=== PATIENT | male | born 1990 | race Caucasian/White ===

== ENCOUNTER 2016-08-12 22:36 | Emergency (ER) | payer BC ==
[2016-08-12 22:47] VITALS: BP 126/89; PULSE 75; RESP 18; TEMP 98.9
[2016-08-12] MEDS ORDERED: MUPIROCIN 2% OINT 22 GM TUBE TOPICAL STA (22:55)
--- NOTE | 2016-08-12 23:00 | ED ---
Abdominal Pain HPI - General Chief Complaint: Abdominal Pain Stated Complaint: bleeding navel Time Seen by Provider: 08/12/16 22:48 Source: patient, RN notes reviewed, old records reviewed Mode of arrival: ambulatory Limitations: no limitations - History of Present Illness Initial Comments: Presenting her male presents emergency Department with bleeding from his umbilicus. Patient reports that is going on for the past 5 hours. Patient reports that when he is taking shower he felt that he rubbed too hard over his umbilicus and caused a small tear and bleeding. Patient reports is continually for the past 5 hours slowly. Patient states that her head this happen before. Denies any bleeding disorders. Denies any recent trauma or previous incision sites over the area.Patient denies any recent fever, chills, shortness of breath , chest pain, back pain, abdominal pain, nausea vomiting, numbness or tingling, dysuria or hematuria, constipation or diarrhea, headaches or visual changes, or any other current symptoms - Related Data Home Medications Medication Instructions Recorded Confirmed No Known Home Medications [No 08/12/16 08/12/16 Known Home Medications] Allergies Allergy/AdvReac Type Severity Reaction Status Date / Time No Known Allergies Allergy Verified 01/24/15 10:55 Review of Systems ROS Statement: Those systems with pertinent positive or pertinent negative responses have been documented in the HPI. ROS Other: All systems not noted in ROS Statement are negative. Past Medical History Past Medical History: GERD/Reflux History of Any Multi-Drug Resistant Organisms: None Reported Past Surgical History: Cholecystectomy Additional Past Surgical History / Comment(s): EGD, WISDOM TEETH EXTRACTION Past Anesthesia/Blood Transfusion Reactions: No Reported Reaction Past Psychological History: No Psychological Hx Reported Smoking Status: Former smoker Additional Past Alcohol Use History / Comment(s): QUIT 2014 , STARTED Past Drug Use History: None Reported - Past Family History Mother Family Medical History: Cancer General Exam - General Exam Comments Initial Comments: Well-appearing 26-year-old male. No acute distress. Limitations: no limitations General appearance: alert, in no apparent distress Head exam: Present: atraumatic, normocephalic, normal inspection Eye exam: Present: normal appearance, PERRL, EOMI. Absent: scleral icterus, conjunctival injection, periorbital swelling ENT exam: Present: normal exam, mucous membranes moist Neck exam: Present: normal inspection. Absent: tenderness, meningismus, lymphadenopathy Respiratory exam: Present: normal lung sounds bilaterally. Absent: respiratory distress, wheezes, rales, rhonchi, stridor Cardiovascular Exam: Present: regular rate, normal rhythm, normal heart sounds. Absent: systolic murmur, diastolic murmur, rubs, gallop, clicks GI/Abdominal exam: Present: soft, normal bowel sounds, other (Evidence of small amount of blood around the umbilicus.). Absent: distended, tenderness, guarding , rebound, rigid Extremities exam: Present: normal inspection, full ROM, normal capillary refill. Absent: tenderness, pedal edema, joint swelling, calf tenderness Back exam: Present: normal inspection Neurological exam: Present: alert, oriented X3, CN II-XII intact Psychiatric exam: Present: normal affect, normal mood Skin exam: Present: warm, dry, intact, normal color. Absent: rash Course Vital Signs 08/12/16 22:43 Temperature 98.9 F Pulse Rate 75 Respiratory 18 Rate Blood Pressure 126/89 O2 Sat by Pulse 98 Oximetry Medical Decision Making - Medical Decision Making Presenting her male presents emergency Department with bleeding from his umbilicus. Patient reports that is going on for the past 5 hours. Patient reports that when he is taking shower he felt that he rubbed too hard over his umbilicus and caused a small tear and bleeding. Patient reports is continually for the past 5 hours slowly. Patient states that her head this happen before. Denies any bleeding disorders. Amylase was inspected. There is evidence of a area of erythema and skin irritation deep within the umbilicus. It was cleaned out. Bactroban was ordered and placed in the area. Discussed keeping the area clean and dry. Patient also was given some gauze to place him as well. Patient reports the bleeding is slowed down immensely. Patient will be discharged home and discussed following up with primary care provider. Patient was treated plan will comply. Disposition Clinical Impression: Umbilical bleeding Disposition: HOME SELF-CARE Condition: Good Instructions: Wound Infection (ED) Additional Instructions: Keep the area clean and dry. Apply antibiotic ointment 3 times a day. Return to the emergency department if any alarming signs or symptoms occur. Follow-up with a primary care doctor within the next 2-3 days. Referrals: Cecy Maurice DO [Primary Care Provider] - 1-2 days Time of Disposition: 22:57
== END 2016-08-12 23:12 | disposition home or self-care (01) ==
LOC: EC 22:36
DX: R58 Hemorrhage, not elsewhere classified (principal); Z90.49 Acquired absence of other specified parts of digestive tract; Z87.891 Personal history of nicotine dependence
CPT/HCPCS: 99283

== ENCOUNTER 2018-03-25 18:26 | Emergency (ER) | payer BC ==
[2018-03-25 19:12] VITALS: RESP 16
[2018-03-25 19:28] LABS: Basophils # (A) 0.1 k/uL (0-0.2); Basophils % (A) 1 %; Eosinophils # (A) 1.2 k/uL (0-0.7); Eosinophils % (A) 13 %; HGB 15.6 gm/dL (13.0-17.5); Lymphocytes % (A) 32 %; MCH 30.6 pg (25.0-35.0); MCHC 33.9 g/dL (31.0-37.0); MCV 90.1 fL (80.0-100.0); Mean Platelet Volume 6.4; Monocytes # (A) 0.6 k/uL (0-1.0); Monocytes % (A) 6 %; Neutrophils # (A) 4.3 k/uL (1.3-7.7); Neutrophils % (A) 46 %; Platelet Count 255 k/uL (150-450); RBC 5.11 m/uL (4.30-5.90); RDW 12.6 % (11.5-15.5); WBC 9.5 k/uL (3.8-10.6)
[2018-03-25 19:40] LABS: ALT 44 U/L (21-72); AST 32 U/L (17-59); Albumin 4.1 g/dL (3.5-5.0); Alkaline Phosphatase 40 U/L (38-126); Amylase 55 U/L (30-110); Anion Gap 10 mmol/L; Blood Urea Nitrogen 12 mg/dL (9-20); Calcium 9.1 mg/dL (8.4-10.2); Carbon Dioxide 24 mmol/L (22-30); Chloride 108 mmol/L (98-107); Glucose 86 mg/dL (74-99); Lipase 38 U/L (23-300); Sodium 142 mmol/L (137-145); Total Bilirubin 0.9 mg/dL (0.2-1.3); Total Protein 6.7 g/dL (6.3-8.2)
[2018-03-25 21:49] LABS: Appearance,Urine Clear (Clear); Bilirubin,Urine Negative (Negative); Blood,Urine Trace (Negative); Color,Urine Yellow; Glucose,Urine (UA) Negative (Negative); Ketones,Urine Negative (Negative); Leukocyte Esterase,Urine Negative (Negative); Mucus,Urine Rare /hpf; Nitrite,Urine Negative (Negative); PH, Urine 5.5 (5.0-8.0); Protein,Urine Negative (Negative); RBC,Urine 2 /hpf (0-5); Specific Gravity,Urine 1.022 (1.001-1.035); Squamous Epithelial Cell,Urine <1 /hpf (0-4); Urobilinogen,Urine <2.0 mg/dL (<2.0); WBC,Urine 1 /hpf (0-5)
--- NOTE | 2018-03-25 21:52 | ED ---
General Adult HPI - General Chief complaint: Abdominal Pain Stated complaint: Stomach pain Source: patient Mode of arrival: ambulatory Limitations: no limitations - Related Data Home Medications Medication Instructions Recorded Confirmed Omeprazole 40 mg PO DAILY 03/25/18 03/25/18 Allergies Allergy/AdvReac Type Severity Reaction Status Date / Time No Known Allergies Allergy Verified 03/25/18 20:46 Review of Systems ROS Statement: Those systems with pertinent positive or pertinent negative responses have been documented in the HPI. ROS Other: All systems not noted in ROS Statement are negative. Past Medical History Past Medical History: GERD/Reflux Additional Past Medical History / Comment(s): abd pain History of Any Multi-Drug Resistant Organisms: None Reported Past Surgical History: Cholecystectomy Additional Past Surgical History / Comment(s): EGD, WISDOM TEETH EXTRACTION Past Anesthesia/Blood Transfusion Reactions: No Reported Reaction Past Psychological History: No Psychological Hx Reported Smoking Status: Former smoker Past Alcohol Use History: None Reported Past Drug Use History: None Reported - Past Family History Mother Family Medical History: Cancer General Exam Limitations: no limitations Course Vital Signs 03/25/18 19:09 Temperature 98.4 F Pulse Rate 60 Respiratory 16 Rate Blood Pressure 157/74 O2 Sat by Pulse 100 Oximetry Medical Decision Making - Medical Decision Making Dictation was produced using [employer] dictation software. please excuse any grammatical, word or spelling errors. Chief Complaint: 28-year-old male presents with bilateral flank pain. History of Present Illness: He was instructed by his primary care physician to come to the emergency department if he has worsening flank pain. Patient states she's been having ongoing symptoms for several days now. He was seen by his primary care doctor who performed an x-ray. He was told that he had some nonspecific gas. She is lying to order a CT however she is waiting for insurance authorization. Patient denies any constitutional symptoms. He states the symptoms got so bad while he was at work that he had to leave work early. Patient states symptoms are worse with movement. The ROS documented in this emergency department record has been reviewed and confirmed by me. Those systems with pertinent positive or negative responses have been documented in the HPI. All other systems are other negative and/or noncontributory. PHYSICAL EXAM: General Impression: Alert and oriented x3, not in acute distress HEENT: Normocephalic atraumatic, extra-ocular movements intact, pupils equal and reactive to light bilaterally, mucous membranes moist. Cardiovascular: Heart regular rate and rhythm, S1&S2 audible, no murmurs, rubs or gallops Chest: Lungs clear to auscultation bilaterally, no rhonchi, no wheeze, no rales Abdomen: Bowel sounds present, abdomen soft, mild tenderness to the epigastrium. , non-distended, no organomegaly Musculoskeletal: Pulses present and equal in all extremities, no peripheral edema Motor: Power 5/5 bilaterally, no focal deficits noted Neurological: CN II-XII grossly intact, no focal motor or sensory deficits noted Skin: Intact with no visualized rashes Psych: Normal affect and mood ED course: 28-year-old male presents with chief complaint of bilateral flank pain. As upon arrival are within acceptable limits. Patient is well- appearing. Abdomen is soft. He is does have some tenderness to the epigastrium Laboratory evaluation obtained showing no acute processes. Urinalysis negative. KUB is unremarkable. Patient clear for discharge. Patient referral to outpatient GI. Work note provided. Point there is no clear etiology of symptoms. No high-risk features. No concern for surgical abdomen. - Lab Data Result diagrams: 03/25/18 19:16 03/25/18 19:16 Lab Results 03/25/18 03/25/18 03/25/18 Range/Units 19:16 19:16 21:21 WBC 9.5 (3.8-10.6) k/uL RBC 5.11 (4.30-5.90) m/uL Hgb 15.6 (13.0-17.5) gm/dL Hct 46.0 (39.0-53.0) % MCV 90.1 (80.0-100.0) fL MCH 30.6 (25.0-35.0) pg MCHC 33.9 (31.0-37.0) g/dL RDW 12.6 (11.5-15.5) % Plt Count 255 (150-450) k/uL Neutrophils % 46 % Lymphocytes % 32 % Monocytes % 6 % Eosinophils % 13 % Basophils % 1 % Neutrophils # 4.3 (1.3-7.7) k/uL Lymphocytes # 3.0 (1.0-4.8) k/uL Monocytes # 0.6 (0-1.0) k/uL Eosinophils # 1.2 H (0-0.7) k/uL Basophils # 0.1 (0-0.2) k/uL Sodium 142 (137-145) mmol/L Potassium 4.0 (3.5-5.1) mmol/L Chloride 108 H (98-107) mmol/L Carbon Dioxide 24 (22-30) mmol/L Anion Gap 10 mmol/L BUN 12 (9-20) mg/dL Creatinine 0.87 (0.66-1.25) mg/dL Est GFR (CKD-EPI)AfAm >90 (>60 ml/min/1.73 sqM) Est GFR (CKD-EPI)NonAf >90 (>60 ml/min/1.73 sqM) Glucose 86 (74-99) mg/dL Calcium 9.1 (8.4-10.2) mg/dL Total Bilirubin 0.9 (0.2-1.3) mg/dL AST 32 (17-59) U/L ALT 44 (21-72) U/L Alkaline Phosphatase 40 (38-126) U/L Total Protein 6.7 (6.3-8.2) g/dL Albumin 4.1 (3.5-5.0) g/dL Amylase 55 (30-110) U/L Lipase 38 (23-300) U/L Urine Color Yellow Urine Appearance Clear (Clear) Urine pH 5.5 (5.0-8.0) Ur Specific [place] 1.022 (1.001-1.035) Urine Protein Negative (Negative) Urine Glucose (UA) Negative (Negative) Urine Ketones Negative (Negative) Urine Blood Trace H (Negative) Urine Nitrite Negative (Negative) Urine Bilirubin Negative (Negative) Urine Urobilinogen <2.0 (<2.0) mg/dL Ur Leukocyte Esterase Negative (Negative) Urine RBC 2 (0-5) /hpf Urine WBC 1 (0-5) /hpf Ur Squamous Epith Cells <1 (0-4) /hpf Urine Mucus Rare H (None) /hpf Disposition Clinical Impression: Flank pain Disposition: HOME SELF-CARE Condition: Good Instructions: Abdominal Pain (ED) Is patient prescribed a controlled substance at d/c from ED?: No Referrals: Rosanna Tijerina MD [Primary Care Provider] - 1-2 days Koffi Neely MD [STAFF PHYSICIAN] - 1-2 days Time of Disposition: 23:50
--- NOTE | 2018-03-25 22:18 | XR ---
EXAMINATION TYPE: XR abdomen acute w cxr DATE OF EXAM: 03/25/2018 COMPARISON: NONE HISTORY: Flank pain TECHNIQUE: Chest x-ray with supine and upright abdomen FINDINGS: Heart and mediastinum are normal. Lungs are clear. Diaphragm is normal. Bowel gas pattern is normal. There is no sign of intestinal obstruction or pneumoperitoneum. Fecal pattern is normal. There are no pathologic calcifications. Bony structures appear intact. IMPRESSION: Nonacute abdomen. Normal chest.
[2018-03-26 00:16] VITALS: BP 117/73; PULSE 78; TEMP 97.8
== END 2018-03-26 00:15 | disposition home or self-care (01) ==
LOC: EC 18:26
DX: R10.9 Unspecified abdominal pain (principal); K21.9 Gastro-esophageal reflux disease without esophagitis; Z87.891 Personal history of nicotine dependence; Z79.899 Other long term (current) drug therapy; Z90.49 Acquired absence of other specified parts of digestive tract
CPT/HCPCS: 36415; 74022; 80053; 81001; 82150; 83690; 85025; 99284

== ENCOUNTER → 2018-05-14 | Day surgery (SDC) | payer BC ==
[2018-05-10 15:44] VITALS: BMI 35.4
[~2018-05-14] MED LIST: LACTATED RINGERS 1,000 ML IV SCH; LIDOCAINE 1% 20 ML VIAL (10MG/ML) FOR IV START INTRADERMA ONE; LIDOCAINE 1% INJ 10MG/ML (20 ML MDV) ONE; PROPOFOL 10 MG/ML 20 ML VIAL IV ONE
[2018-05-14 08:46] VITALS: TEMP 97.6
--- NOTE | 2018-05-14 09:49 | P.GSHP ---
History of Present Illness H&P Date: 05/14/18 Chief Complaint: GERD, diarrhea This a 28-year-old male who's had complaints of GERD and diarrhea. Patient presents today for EGD and colonoscopy. Past Medical History Past Medical History: GERD/Reflux Additional Past Medical History / Comment(s): abd pain, DIARRHEA History of Any Multi-Drug Resistant Organisms: None Reported Past Surgical History: Cholecystectomy Additional Past Surgical History / Comment(s): EGD, WISDOM TEETH EXTRACTION Past Anesthesia/Blood Transfusion Reactions: No Reported Reaction Smoking Status: Former smoker - Past Family History Mother Family Medical History: Cancer Medications and Allergies Home Medications Medication Instructions Recorded Confirmed Type Omeprazole 40 mg PO DAILY 03/25/18 05/14/18 History Ibuprofen [Advil] 200 mg PO Q8HR PRN 05/10/18 05/10/18 History Allergies Allergy/AdvReac Type Severity Reaction Status Date / Time No Known Allergies Allergy Verified 05/10/18 15:41 Surgical - Exam Vital Signs Temp Pulse Resp BP Pulse Ox 97.6 F 60 18 137/72 95 05/14/18 08:45 05/14/18 08:45 05/14/18 08:45 05/14/18 08:45 05/14/18 08:45 - General well developed, well nourished, no distress - Eyes PERRL - ENT normal pinna - Neck no masses - Respiratory normal expansion - Cardiovascular Rhythm: regular - Abdomen Abdomen: soft, non tender Assessment and Plan Assessment: GERD, diarrhea. We'll perform EGD and colonoscopy.
--- NOTE | 2018-05-14 10:21 | P.OP ---
Date of Procedure: 05/14/18 Preoperative Diagnosis: GERD Diarrhea Postoperative Diagnosis: Antral gastritis No evidence of hiatal hernia Minimal esophagitis Sigmoid colon polyp Procedure(s) Performed: EGD Colonoscopy Anesthesia: MAC Surgeon: Linus Dobbs Pathology: other (Antrum, esophagus) Condition: stable Disposition: PACU Description of Procedure: The patient's placed on the endoscopy table in the lateral position. He received IV sedation. The gastroscope placed oropharynx passed in the esophagus and into the stomach. Scope was then placed through the pylorus. The first and second portion of the duodenum appeared normal. Scope was then brought back the antrum this. Mildly inflamed. A biopsies was performed. The scope was then retroflexed and the remainder of the stomach appeared normal. There was no significant hiatal hernia. The GE junction was at 47 is. The distal esophagus appeared minimally inflamed and a biopsies performed. The proximal esophagus appeared normal. Scope was withdrawn for patient. Next digital rectal exam was performed which revealed no abnormalities. The flexible colonoscope was then placed patient anus passed throughout the entire colon. The ileocecal valve was visualized. The cecum, ascending and transverse colon appeared normal. In the descending there was no abnormalities noted. In the sigmoid colon there was a small sessile polyp which was removed with a cold forcep. The scope was then brought back the rectum and this appeared normal. Scope was withdrawn for patient.
[2018-05-14 10:23] VITALS: RESP 16
[2018-05-14 10:42] VITALS: BP 122/83; PULSE 54
== END ==
LOC: ORWHC2ENDO 08:26
PROVIDERS: ATTEND Surgery
DX: R19.7 Diarrhea, unspecified (principal); K63.5 Polyp of colon; K21.0 Gastro-esophageal reflux disease with esophagitis; K44.9 Diaphragmatic hernia without obstruction or gangrene; K29.50 Unspecified chronic gastritis without bleeding; Z87.891 Personal history of nicotine dependence; Z80.9 Family history of malignant neoplasm, unspecified; Z79.899 Other long term (current) drug therapy
CPT/HCPCS: 88305; 45380; 43239; J2001; J2704

== ENCOUNTER 2019-12-22 18:20 | Emergency (ER) | payer BC ==
[2019-12-22 18:41] VITALS: BP 129/85; PULSE 64; RESP 18; TEMP 98.8
--- NOTE | 2019-12-22 19:18 | ED ---
Extremity Problem HPI - General Chief complaint: Extremity Problem,Nontraumatic Stated complaint: LT arm pain Time Seen by Provider: 12/22/19 18:48 Source: patient, RN notes reviewed, old records reviewed Mode of arrival: ambulatory Limitations: no limitations - History of Present Illness Initial comments: This is a 29-year-old male DF for evaluation patient Dese for evaluation regards to upper extremity numbness and tingling. Patient has been going down left arm as well as right arm and the). Left hand. Patient continues to do very physically active job causing of constant repetitive motions of his hands. Symptoms of been progressively worsening R side accident. Complaint: other -: hour(s) Location: left, right History of Same: Yes -: Yes arthralgia Radiation: proximal Severity scale (1-10): 3 Quality: other (Numbness and tingling) Consistency: intermittent Improves with: nothing Worsens with: nothing - Related Data Home Medications Medication Instructions Recorded Confirmed Omeprazole 40 mg PO DAILY 03/25/18 05/14/18 Ibuprofen [Advil] 200 mg PO Q8HR PRN 05/10/18 05/10/18 Allergies Allergy/AdvReac Type Severity Reaction Status Date / Time No Known Allergies Allergy Verified 12/22/19 18:41 Review of Systems ROS Statement: Those systems with pertinent positive or pertinent negative responses have been documented in the HPI. ROS Other: All systems not noted in ROS Statement are negative. Past Medical History Past Medical History: GERD/Reflux Additional Past Medical History / Comment(s): abd pain, DIARRHEA History of Any Multi-Drug Resistant Organisms: None Reported Past Surgical History: Cholecystectomy Additional Past Surgical History / Comment(s): EGD, WISDOM TEETH EXTRACTION Past Anesthesia/Blood Transfusion Reactions: No Reported Reaction Past Psychological History: No Psychological Hx Reported Smoking Status: Current every day smoker Past Alcohol Use History: None Reported Past Drug Use History: None Reported - Past Family History Mother Family Medical History: Cancer General Exam - General Exam Comments Initial Comments: Patient has positive carpal tunnel findings in both left and right wrist Limitations: no limitations General appearance: alert, in no apparent distress Head exam: Present: atraumatic, normocephalic, normal inspection Eye exam: Present: normal appearance, PERRL, EOMI. Absent: scleral icterus, conjunctival injection, periorbital swelling ENT exam: Present: normal exam, mucous membranes moist Neck exam: Present: normal inspection. Absent: tenderness, meningismus, lymphadenopathy Respiratory exam: Present: normal lung sounds bilaterally. Absent: respiratory distress, wheezes, rales, rhonchi, stridor Cardiovascular Exam: Present: regular rate, normal rhythm, normal heart sounds. Absent: systolic murmur, diastolic murmur, rubs, gallop, clicks GI/Abdominal exam: Present: soft, normal bowel sounds. Absent: distended, tenderness, guarding, rebound, rigid Extremities exam: Present: normal inspection, full ROM, normal capillary refill. Absent: tenderness, pedal edema, joint swelling, calf tenderness Back exam: Present: normal inspection Neurological exam: Present: alert, oriented X3, CN II-XII intact Psychiatric exam: Present: normal affect, normal mood Skin exam: Present: warm, dry, intact, normal color. Absent: rash Course Vital Signs 12/22/19 18:37 Temperature 98.8 F Pulse Rate 64 Respiratory 18 Rate Blood Pressure 129/85 O2 Sat by Pulse 98 Oximetry - Reevaluation(s) Reevaluation #1: 12/22/19 19:17 Medical record is reviewed Reevaluation #2: 12/22/19 19:17 Patient spoke with at length regarding findings and questions are answered Medical Decision Making - Medical Decision Making 29 [id number] male DF for evaluation sincerely doubt left arm and left hand. Patient does have evidence of carpal tunnel on exam in both hands. Patient was placed on anti-inflammatories and can be discharged home Disposition Clinical Impression: Carpal tunnel syndrome, Paresthesia of both hands Disposition: ADMITTED IP TO THIS HOSP Condition: Fair Instructions (If sedation given, give patient instructions): Paresthesia (ED), Carpal Tunnel Surgery (DC) Is patient prescribed a controlled substance at d/c from ED?: No Referrals: Lazarus Bhatt DO [Primary Care Provider] - 1-2 days
[2019-12-22] MEDS ORDERED: IBUPROFEN 600 MG STARTER PACK 4 TAB BTL PO STA (19:19)
[2019-12-22] MEDS ORDERED: dexAMETHasone 4 MG TAB PO STA (19:19)
[2019-12-22] MEDS ORDERED: IBUPROFEN 800 MG TAB PO STA (19:19)
== END 2019-12-22 19:53 | disposition other institution (70) ==
LOC: EC 18:20
DX: G56.03 Carpal tunnel syndrome, bilateral upper limbs (principal); K21.9 Gastro-esophageal reflux disease without esophagitis; R10.9 Unspecified abdominal pain; F17.200 Nicotine dependence, unspecified, uncomplicated; Z79.899 Other long term (current) drug therapy
CPT/HCPCS: 99284; J8540

== ENCOUNTER 2020-01-26 01:07 | Emergency (ER) | payer BC ==
[2020-01-26 01:16] VITALS: TEMP 98.1
--- NOTE | 2020-01-26 02:07 | ED ---
General Adult HPI - General Chief complaint: Neuro Symptoms/Deficit Stated complaint: left side numbness/tingling Time Seen by Provider: 01/26/20 01:20 Source: patient Mode of arrival: ambulatory Limitations: no limitations - History of Present Illness Initial comments: this patient is a 29-year-old man who presents to be evaluated for tingling to the left side he indicates the left arm and left leg. Patient states that he has had this going back probably about a year and believes it is related to his work, where he does repetitive movement. Patient notes that it was worse over the course of this evening. No weakness. No headache back or neck pain or injury. Onset/Timin -: year(s) Location: left, upper extremity, lower extremity Quality: other (tingling) Consistency: constant Improves with: none Worsens with: none Associated Symptoms: denies other symptoms - Related Data Home Medications Medication Instructions Recorded Confirmed Omeprazole 40 mg PO DAILY 03/25/18 05/14/18 Ibuprofen [Advil] 200 mg PO Q8HR PRN 05/10/18 05/10/18 Previous Rx's Medication Instructions Recorded Naproxen [Naprosyn] 500 mg PO Q12HR #60 tab 12/22/19 predniSONE 50 mg PO DAILY #5 tab 12/22/19 Allergies Allergy/AdvReac Type Severity Reaction Status Date / Time No Known Allergies Allergy Verified 01/26/20 01:16 Review of Systems ROS Statement: Those systems with pertinent positive or pertinent negative responses have been documented in the HPI. ROS Other: All systems not noted in ROS Statement are negative. Constitutional: Denies: fever, chills, weakness Respiratory: Denies: cough, dyspnea Cardiovascular: Denies: chest pain, palpitations, edema, syncope Gastrointestinal: Denies: abdominal pain, nausea, vomiting Musculoskeletal: Denies: back pain Skin: Denies: rash, lesions Neurological: Reports: paresthesias. Denies: headache, weakness, numbness Past Medical History Past Medical History: GERD/Reflux Additional Past Medical History / Comment(s): abd pain, DIARRHEA History of Any Multi-Drug Resistant Organisms: None Reported Past Surgical History: Cholecystectomy Additional Past Surgical History / Comment(s): EGD, WISDOM TEETH EXTRACTION Past Anesthesia/Blood Transfusion Reactions: No Reported Reaction Past Psychological History: Depression Smoking Status: Current every day smoker Past Alcohol Use History: None Reported Past Drug Use History: None Reported - Past Family History Mother Family Medical History: Cancer General Exam Limitations: no limitations General appearance: alert, in no apparent distress Head exam: Present: atraumatic, normocephalic Eye exam: Present: normal appearance. Absent: scleral icterus, conjunctival injection ENT exam: Present: normal oropharynx Neck exam: Present: normal inspection, full ROM Respiratory exam: Present: normal lung sounds bilaterally. Absent: respiratory distress, wheezes, rales, rhonchi, stridor Cardiovascular Exam: Present: regular rate, normal rhythm, normal heart sounds. Absent: systolic murmur, diastolic murmur, rubs, gallop GI/Abdominal exam: Present: soft. Absent: distended, tenderness, guarding, rebound, rigid, mass Extremities exam: Present: normal inspection, normal capillary refill. Absent: pedal edema, calf tenderness Back exam: Present: normal inspection. Absent: CVA tenderness (R), CVA te nderness (L) Neurological exam: Present: alert, oriented X3, CN II-XII intact. Absent: motor sensory deficit Skin exam: Present: warm, dry, intact, normal color. Absent: rash Course Vital Signs 01/26/20 01/26/20 01:14 01:38 Temperature 98.1 F Pulse Rate 79 76 Respiratory 18 16 Rate Blood Pressure 145/82 131/80 O2 Sat by Pulse 100 99 Oximetry EKG Findings - EKG Results: EKG: interpreted by ERMD, sinus rhythm, normal axis, normal QRS, normal ST/T, no acute changes EKG shows: bradycardia (rate 55 bpm) Medical Decision Making - Lab Data Result diagrams: 01/26/20 02:34 01/26/20 02:34 Lab Results 01/26/20 01/26/20 01/26/20 Range/Units 02:34 02:34 02:34 WBC 10.9 H (3.8-10.6) k/uL RBC 4.80 (4.30-5.90) m/uL Hgb 14.5 (13.0-17.5) gm/dL Hct 44.7 (39.0-53.0) % MCV 93.1 (80.0-100.0) fL MCH 30.2 (25.0-35.0) pg MCHC 32.4 (31.0-37.0) g/dL RDW 12.7 (11.5-15.5) % Plt Count 279 (150-450) k/uL MPV 6.7 Neutrophils % 47 % Lymphocytes % 36 % Monocytes % 7 % Eosinophils % 8 % Basophils % 1 % Neutrophils # 5.1 (1.3-7.7) k/uL Lymphocytes # 3.9 (1.0-4.8) k/uL Monocytes # 0.7 (0-1.0) k/uL Eosinophils # 0.8 H (0-0.7) k/uL Basophils # 0.2 (0-0.2) k/uL Sodium 139 (137-145) mmol/L Potassium 4.4 (3.5-5.1) mmol/L Chloride 110 H (98-107) mmol/L Carbon Dioxide 24 (22-30) mmol/L Anion Gap 5 mmol/L BUN 16 (9-20) mg/dL Creatinine 0.87 (0.66-1.25) mg/dL Est GFR (CKD-EPI)AfAm >90 (>60 ml/min/1.73 sqM) Est GFR (CKD-EPI)NonAf >90 (>60 ml/min/1.73 sqM) Glucose 95 (74-99) mg/dL Calcium 8.6 (8.4-10.2) mg/dL Total Bilirubin 0.6 (0.2-1.3) mg/dL AST 27 (17-59) U/L ALT 21 (4-49) U/L Alkaline Phosphatase 58 (38-126) U/L Troponin I <0.012 (0.000-0.034) ng/mL Total Protein 6.2 L (6.3-8.2) g/dL Albumin 3.7 (3.5-5.0) g/dL Disposition Clinical Impression: Paresthesia Disposition: HOME SELF-CARE Condition: Good Instructions (If sedation given, give patient instructions): Paresthesia (ED) Is patient prescribed a controlled substance at d/c from ED?: No Referrals: Lazarus Bhatt DO [Primary Care Provider] - 1-2 days Sandy Parada MD [REFERRING] - 1-2 days
[2020-01-26 02:48] LABS: Basophils # (A) 0.2 k/uL (0-0.2); Basophils % (A) 1 %; Eosinophils # (A) 0.8 k/uL (0-0.7); Eosinophils % (A) 8 %; HCT 44.7 % (39.0-53.0); HGB 14.5 gm/dL (13.0-17.5); Lymphocytes # (A) 3.9 k/uL (1.0-4.8); Lymphocytes % (A) 36 %; MCH 30.2 pg (25.0-35.0); MCHC 32.4 g/dL (31.0-37.0); MCV 93.1 fL (80.0-100.0); Mean Platelet Volume 6.7; Monocytes # (A) 0.7 k/uL (0-1.0); Monocytes % (A) 7 %; Neutrophils # (A) 5.1 k/uL (1.3-7.7); Neutrophils % (A) 47 %; Platelet Count 279 k/uL (150-450); RDW 12.7 % (11.5-15.5); WBC 10.9 k/uL (3.8-10.6)
[2020-01-26 03:01] LABS: ALT 21 U/L (4-49); AST 27 U/L (17-59); African American GFR (CKD) >90 (>60 ml/min/1.73 sqM); Albumin 3.7 g/dL (3.5-5.0); Alkaline Phosphatase 58 U/L (38-126); Anion Gap 5 mmol/L; Blood Urea Nitrogen 16 mg/dL (9-20); Calcium 8.6 mg/dL (8.4-10.2); Carbon Dioxide 24 mmol/L (22-30); Chloride 110 mmol/L (98-107); Glucose 95 mg/dL (74-99); Non-African American GFR(CKD) >90 (>60 ml/min/1.73 sqM); Potassium 4.4 mmol/L (3.5-5.1); Sodium 139 mmol/L (137-145); Total Bilirubin 0.6 mg/dL (0.2-1.3); Total Protein 6.2 g/dL (6.3-8.2)
--- NOTE | 2020-01-26 03:12 | CT ---
EXAM: CT Head Without Intravenous Contrast CLINICAL HISTORY: ITS.REASON CT Reason: Neuro deficit, acute, stroke suspected TECHNIQUE: Axial computed tomography images of the head/brain without intravenous contrast. CTDI is 49.27 mGy and DLP is 1123.40 mGy-cm. This CT exam was performed using one or more of the following dose reduction techniques: automated exposure control, adjustment of the mA and/or kV according to patient size, and/or use of iterative reconstruction technique. COMPARISON: No relevant prior studies available. FINDINGS: Brain: Unremarkable. No hemorrhage. No significant white matter disease. No edema. Ventricles: Unremarkable. No ventriculomegaly. Bones/joints: Unremarkable. No acute fracture. Soft tissues: Unremarkable. Sinuses: Unremarkable as visualized. No acute sinusitis. Mastoid air cells: Unremarkable as visualized. No mastoid effusion. IMPRESSION: Normal noncontrast head/brain CT examination.
[2020-01-26 04:03] VITALS: BP 116/81; PULSE 61; RESP 17
== END 2020-01-26 04:00 | disposition home or self-care (01) ==
LOC: EC 01:07
DX: R20.2 Paresthesia of skin (principal); R20.0 Anesthesia of skin; K21.9 Gastro-esophageal reflux disease without esophagitis; F17.200 Nicotine dependence, unspecified, uncomplicated; Z79.899 Other long term (current) drug therapy
CPT/HCPCS: 36415; 70450; 80053; 84484; 85025; 93005; 99284

== ENCOUNTER → 2020-08-06 | Outpatient (CLI) | payer BC ==
--- NOTE | 2020-08-06 16:37 | XR ---
Cervical spine HISTORY: Bilateral upper terminating radiculopathy and facial numbness 5 views of the cervical spine There is no evident foraminal encroachment. There may be a slight spinal curvature. Cervical vertebra l bodies show preserved height, alignment, and bone mineralization. Disc spaces and prevertebral soft tissues are relatively preserved with the exception of some loss of disc height at C5-6. Odontoid vi ew is somewhat limited. IMPRESSION: Mild degenerative disc disease is suspected.
== END ==
LOC: RADXRMAIN 12:08
PROVIDERS: ATTEND Family Medicine
DX: M54.12 Radiculopathy, cervical region (principal); R20.0 Anesthesia of skin
CPT/HCPCS: 72050

== ENCOUNTER → 2020-08-31 | Outpatient (CLI) | payer BC ==
--- NOTE | 2020-08-31 10:26 | MR ---
MRI CERVICAL SPINE: CLINICAL HISTORY: Facial numbness and tingling into bilateral arms. TECHNIQUE: Multiplanar, multisequence imaging of the cervical spine is performed without IV contrast. COMPARISON: Cervical spine x-ray August 06, 2020. FINDINGS: Sagittal images of the cervical spine show the craniocervical junction to appear within nor mal limits. The cervical and upper thoracic spinal cord is normal in course, caliber, and signal. Sl ight grade 1 retrolisthesis C5 on C6. The vertebral body and intravertebral disk heights are normal. The bone marrow signal intensity is within normal limits. Mild to moderate mucosal thickening in vi sualized portion of sphenoid and maxillary sinuses is noted. Axial images and C2-C3 and C3-C4 level are within normal limits. Axial images at C4-C5 level shows broad-based right paracentral disc protrusion mildly effacing the a nterior thecal sac, patent bilateral neural foramina. Axial images at C5-C6 level shows spondylolisthesis and focal left paracentral disc protrusion effaci ng the anterolateral thecal sac, there is mild to moderate left greater than right bilateral neural f oraminal narrowing due to additional right foraminal disc protrusion component. Axial images at C6-C7 and C7-T1 levels appear within normal limits. IMPRESSION: Focal spondylolisthesis and degenerative change C5-C6 level as detailed above.
== END | disposition home or self-care (01) ==
LOC: RADMRIMAIN 08:13
PROVIDERS: ATTEND Family Medicine
DX: M43.12 Spondylolisthesis, cervical region (principal); M47.812 Spondylosis without myelopathy or radiculopathy, cervical region; M50.121 Cervical disc disorder at C4-C5 level with radiculopathy
CPT/HCPCS: 72141

== ENCOUNTER 2021-10-26 11:21 | Emergency (ER) | payer BC ==
[2021-10-26 11:46] VITALS: RESP 20
[2021-10-26] MEDS ORDERED: SODIUM CHLORIDE 0.9% 1,000 ML IV STA (12:24)
[2021-10-26] MEDS ORDERED: ONDANSETRON 4 MG/2 ML VIAL IVP STA (12:24)
[2021-10-26] MEDS ORDERED: DEXAMETHASONE SOD PHOSPHATE 10 MG/ML 1 ML VIAL IVP SCH (12:30)
--- NOTE | 2021-10-26 12:35 | ED ---
Fever HPI - General Chief Complaint: Fever Stated Complaint: COVID+ Time Seen by Provider: 10/26/21 11:53 Source: patient, family, RN notes reviewed Mode of arrival: ambulatory Limitations: no limitations - History of Present Illness Initial Comments: This is a 31-year-old male who presents to the emergency department for a fever, cough, body aches, nausea, and vomiting secondary to COVID-19. Patient states that he tested positive for COVID yesterday. He has been unable to keep down any food or fluids. Patient is vaccinated against COVID-19. Denies any sick contacts or history of respiratory problems. Denies any sore throat, dyspnea, chest pain, palpitations, abdominal pain, diarrhea, or back pain. MD Complaint: fever Onset/Timin -: days(s) Associated Symptoms: myalgias, cough, nausea, vomiting - Related Data Home Medications Medication Instructions Recorded Confirmed Omeprazole 40 mg PO DAILY 03/25/18 05/14/18 Ibuprofen [Advil] 200 mg PO Q8HR PRN 05/10/18 05/10/18 Previous Rx's Medication Instructions Recorded Naproxen [Naprosyn] 500 mg PO Q12HR #60 tab 12/22/19 predniSONE 50 mg PO DAILY #5 tab 12/22/19 Benzonatate [Tessalon Perles] 100 mg PO TID PRN #20 capsule 10/26/21 Nirmatrelvir/Ritonavir [Paxlovid 1 each PO BID 5 Days #10 tab 10/26/21 2X150 mg-100 mg (Eua)] Ondansetron Odt [Zofran Odt] 4 mg PO Q8HR PRN #20 tab 10/26/21 Allergies Allergy/AdvReac Type Severity Reaction Status Date / Time No Known Allergies Allergy Verified 10/26/21 11:46 Review of Systems ROS Statement: Those systems with pertinent positive or pertinent negative responses have been documented in the HPI. ROS Other: All systems not noted in ROS Statement are negative. Past Medical History Past Medical History: GERD/Reflux Additional Past Medical History / Comment(s): abd pain, DIARRHEA History of Any Multi-Drug Resistant Organisms: None Reported Past Surgical History: Cholecystectomy Additional Past Surgical History / Comment(s): EGD, WISDOM TEETH EXTRACTION Past Anesthesia/Blood Transfusion Reactions: No Reported Reaction Past Psychological History: Depression Smoking Status: Current every day smoker Past Alcohol Use History: None Reported Past Drug Use History: None Reported - Past Family History Mother Family Medical History: Cancer General Exam Limitations: no limitations General appearance: alert, in distress Head exam: Present: atraumatic, normocephalic, normal inspection Respiratory exam: Present: normal lung sounds bilaterally. Absent: respiratory distress, wheezes, rales, rhonchi, stridor Cardiovascular Exam: Present: regular rate, normal rhythm, normal heart sounds. Absent: systolic murmur, diastolic murmur, rubs, gallop, clicks Neurological exam: Present: alert, oriented X3, CN II-XII intact Psychiatric exam: Present: normal affect, normal mood Skin exam: Present: warm, dry, intact, normal color. Absent: rash Course Vital Signs 10/26/21 10/26/21 11:42 13:46 Temperature 100.1 F H 100.2 F H Pulse Rate 102 H 94 Respiratory 20 20 Rate Blood Pressure 160/82 126/78 O2 Sat by Pulse 96 95 Oximetry Medical Decision Making - Medical Decision Making This is a 31-year-old male who presents to the emergency department for fevers, body aches, and nausea secondary to COVID-19. Patient was given IV fluids, Zofran, and Decadron in the emergency department. Prescription for Paxlovid, zofran, and Tessalon Perles sent to the pharmacy to help the patient manage his symptoms. Advised he remain well hydrated and slowly advance his diet as tolerated. Return precautions reviewed in depth, the patient is instructed to return to the emergency department with any new, worsening, or concerning symptoms. Patient verbalized understanding. This case was discussed in detail with the attending ED physician. Presentation, findings, and treatment plan discussed in detail as well. Disposition Clinical Impression: COVID-19 Disposition: HOME SELF-CARE Instructions (If sedation given, give patient instructions): COVID-19 (Coronavirus Disease 2019) (ED), How to Recover from COVID-19 at Home (ED) Additional Instructions: Return to the emergency department with any new, worsening, or concerning symptoms. Take the Zofran up to every 8 hours as needed for nausea and vomiting. Take ibuprofen and Tylenol as needed for pain and fevers. Take the Paxlovid twice daily for 5 days. The Tessalon Perles can be taken up to 3x daily for coughing. Prescriptions: Nirmatrelvir/Ritonavir [Paxlovid 2X150 mg-100 mg (Eua)] 1 each PO BID 5 Days #10 tab Benzonatate [Tessalon Perles] 100 mg PO TID PRN #20 capsule PRN Reason: Cough Ondansetron Odt [Zofran Odt] 4 mg PO Q8HR PRN #20 tab PRN Reason: Nausea And Vomiting Is patient prescribed a controlled substance at d/c from ED?: No Referrals: Lazarus Bhatt DO [Primary Care Provider] - 1-2 days
[2021-10-26] MEDS ORDERED: ACETAMINOPHEN TAB 500 MG TAB PO STA (13:01)
[2021-10-26 13:47] VITALS: BP 126/78; PULSE 94; TEMP 100.2
== END 2021-10-26 13:55 | disposition home or self-care (01) ==
LOC: EC 11:21
DX: U07.1 COVID-19 (principal); K21.9 Gastro-esophageal reflux disease without esophagitis; Z79.83 Long term (current) use of bisphosphonates; F17.200 Nicotine dependence, unspecified, uncomplicated
CPT/HCPCS: 96374; 96375; 96361; 99283; J1100; J2405

== ENCOUNTER 2022-11-27 16:29 | Emergency (ER) | payer BC ==
--- NOTE | 2022-11-27 17:34 | ED ---
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 Patient was stung in the left index finger and right upper lip about an hour prior to arrival emergency room. He has some mild swelling to the lip. Had some drooling initially but has since improved. Denies any respiratory distress or difficulty tolerating secretions at this point. Took Benadryl 10 minutes prior to getting to ED. the patient does not recall what happened last time he states he passed out and woke up in the hospital. He never had to be intubated. the patient has not been carrying an epipen since. the patient denies any chest pain, shortness of breath, muffled speech, rash, swelling, vomiting or new concerning symptoms. MD Complaint: allergic reaction -: hour(s) (1) - Related Data Home Medications Medication Instructions Recorded Confirmed Omeprazole 40 mg PO DAILY 03/25/18 05/14/18 Ibuprofen [Advil] 200 mg PO Q8HR PRN 05/10/18 05/10/18 Previous Rx's Medication Instructions Recorded Naproxen [Naprosyn] 500 mg PO Q12HR #60 tab 12/22/19 predniSONE 50 mg PO DAILY #5 tab 12/22/19 Benzonatate [Tessalon Perles] 100 mg PO TID PRN #20 capsule 10/26/21 Nirmatrelvir/Ritonavir [Paxlovid 1 each PO BID 5 Days #10 tab 10/26/21 2X150 mg-100 mg (Eua)] Ondansetron Odt [Zofran Odt] 4 mg PO Q8HR PRN #20 tab 10/26/21 EPINEPHrine (Auto Inject) [Epipen] 0.3 mg IM ONCE PRN #1 each 11/27/22 Famotidine [Pepcid] 40 mg PO DAILY 5 Days #10 tablet 11/27/22 diphenhydrAMINE [Benadryl] 25 mg PO QID PRN 5 Days #20 capsule 11/27/22 predniSONE 50 mg PO DAILY #5 tab 11/27/22 Allergies Allergy/AdvReac Type Severity Reaction Status Date / Time No Known Allergies Allergy Verified 11/27/22 17:36 Review of Systems ROS Statement: Those systems with pertinent positive or pertinent negative responses have been documented in the HPI. ROS Other: All systems not noted in ROS Statement are negative. Past Medical History Past Medical History: GERD/Reflux Additional Past Medical History / Comment(s): abd pain, DIARRHEA History of Any Multi-Drug Resistant Organisms: None Reported Past Surgical History: Cholecystectomy Additional Past Surgical History / Comment(s): EGD, WISDOM TEETH EXTRACTION Past Anesthesia/Blood Transfusion Reactions: No Reported Reaction Past Psychological History: Depression Smoking Status: Current every day smoker Past Alcohol Use History: None Reported Past Drug Use History: None Reported - Past Family History Mother Family Medical History: Cancer General Exam - General Exam Comments Initial Comments: Visual Physical Exam Vital signs reviewed General: Well-appearing, nontoxic, no acute distress. Head: Normocephalic, atraumatic Eyes: PERRLA, EOMI ENT: Airway patent Chest: Nonlabored breathing Skin: No visual rash, normal skin tone Neuro: Alert and oriented 3 Musculoskeletal: No gross abnormalities Limitations: no limitations General appearance: alert, in no apparent distress Head exam: Present: atraumatic Eye exam: Present: normal appearance, PERRL Pupils: Present: normal accommodation ENT exam: Present: normal exam, normal oropharynx, mucous membranes dry, other (Very mild swelling to the right upper lip at sting site with no surrounding erythema ecchymosis. No muffled speech or drooling areas intact. No sublingual swelling. No other swelling of the lips. Tolerating secretions without limita tions.) Neck exam: Present: normal inspection, other (No swelling) Respiratory exam: Present: normal lung sounds bilaterally, other (Patient is in no respiratory distress. No stridor no tripod position.) Cardiovascular Exam: Present: regular rate, normal rhythm GI/Abdominal exam: Present: soft Neurological exam: Present: alert, oriented X3 Psychiatric exam: Present: normal affect, normal mood Course Vital Signs 11/27/22 17:30 Temperature 97.8 F Pulse Rate 70 Respiratory 18 Rate Blood Pressure 126/83 O2 Sat by Pulse 98 Oximetry - Reevaluation(s) Reevaluation #1: 11/27/22 18:49 Patient is feeling better at this time. He has remained stable in the emergency room. He has no further swelling to the upper lip anymore. he has not develo ped new symptoms. there is no swelling of the lips, tongue, airway or sublingual swelling. he is tolerating his secretions and is in no resp distress. he has not had any vomiting. I discussed management with the patient and significant other at the bedside. I will continue ALLERGIC reaction management with Pepcid, prednisone and Benadryl at home. Given that the patient is anxious I will also write for an EpiPen that he may fill if desired. The patient and significant other at the bedside and understand signs to return to the emergency room. Medical Decision Making - Medical Decision Making The quick note portion of this exam was completed by me, signed BASSAM Oliva.Was pt. sent in by a medical professional or institution (, PA, COLLECTION SYSTEMS ADMINISTRATOR, urgent care, hospital, or retirement...) When possible be specific @ -[No] Did you speak to anyone other than the patient for history (EMS, parent, family, police, friend...)? What history was obtained from this source @ - at the bedside Did you review nursing and triage notes (agree or disagree)? Why? @ -[I reviewed and agree with nursing and triage notes] Were old charts reviewed (outside hosp., previous admission, EMS record, old EKG, old radiological studies, urgent care reports/EKG's, retirement records)? Report findings @ -[No old charts were reviewed] Differential Diagnosis (chest pain, altered mental status, abdominal pain women, abdominal pain men, vaginal bleeding, weakness, fever, dyspnea, syncope, headache, dizziness, GI bleed, back pain, seizure, CVA, palpatations, mental health, musculoskeletal)? @ -Insect sting, ALLERGIC reaction, anaphylaxis EKG interpreted by me (3pts min.). @ -[As above] X-rays interpreted by me (1pt min.). @ -[None done] CT interpreted by me (1pt min.). @ -[None done] U/S interpreted by me (1pt. min.). @ -[None done] What testing was considered but not performed or refused? (CT, X-rays, U/S, labs)? Why? @ -[None] What meds were considered but not given or refused? Why? @ -Epinephrine. Patient is not an anaphylactic Shock is stable at this time with very minimal swelling. His swelling improved with medications without the need of epinephrine therefore was not given today. I did discuss this with Dr. Jesus. Did you discuss the management of the patient with other professionals (professionals i.e. , PA, COLLECTION SYSTEMS ADMINISTRATOR, lab, RT, psych nurse, social work supervisor, biomedical equipment technician, teacher, infantry officer, keycase assembler)? Give summary @ -Discussed patient's symptoms and management with attending ED physician Dr. Jesus today. Was smoking cessation discussed for >3mins.? @ -[No] Was critical care preformed (if so, how long)? @ -[No] Were there social determinants of health that impacted care today? How? (Homelessness, low income, unemployed, alcoholism, drug addiction, transportation, low edu. Level, literacy, decrease access to med. care, [facility], rehab)? @ -[No] Was there de-escalation of care discussed even if they declined (Discuss DNR or withdrawal of care, Hospice)? DNR status @ -[No] What co-morbidities impacted this encounter? (DM, HTN, Smoking, COPD, CAD, Cancer, CVA, ARF, Chemo, Hep., AIDS, mental health diagnosis, sleep apnea, morbid obesity)? @ -History of ALLERGIC reactions to bee stings. Was patient admitted / discharged? Hospital course, mention meds given and route, prescriptions, significant lab abnormalities, going to OR and other pertinent info. @ -Patient is stable to be discharged home with medications he may take as an o utpatient. He is stable vital signs are stable and he is in no respiratory distress. He is tolerating his secretions without limitations. Patient does not need hospital admission at this time. Undiagnosed new problem with uncertain prognosis? @ -[No] Drug Therapy requiring intensive monitoring for toxicity (Heparin, Nitro, Insulin, Cardizem)? @ -[No] Were any procedures done? @ -[No] Diagnosis/symptom? @ -ALLERGIC reaction, bee sting Acute, or Chronic, or Acute on Chronic? @ -Acute Uncomplicated (without systemic symptoms) or Complicated (systemic symptoms)? @ -Uncomplicated Side effects of treatment? @ -Drowsiness from Benadryl Exacerbation, Progression, or Severe Exacerbation? @ -[No] Poses a threat to life or bodily function? How? (Chest pain, [place], [place], pneumonia, PE, COPD, DKA, ARF, appy, cholecystitis, CVA, Diverticulitis, Homicidal, Suicidal, threat to staff... and all critical care pts) @ -[No] Disposition Clinical Impression: Allergic reaction, Allergic reaction to insect sting Disposition: HOME SELF-CARE Instructions (If sedation given, give patient instructions): Anaphylaxis (ED), Insect Bite or Sting (ED), Epinephrine (By injection) Additional Instructions: Return to the emergency room for any worsening swelling, difficulty breathing, muffled speech or drooling, vomiting. Is patient prescribed a controlled substance at d/c from ED?: No Referrals: Lazarus Bhatt DO [Primary Care Provider] - 1-2 days Time of Disposition: 18:59
[2022-11-27 17:37] VITALS: BP 126/83; PULSE 70; RESP 18; TEMP 97.8
[2022-11-27] MEDS ORDERED: SODIUM CHLORIDE 0.9% 500 ML 500 ML IV STA (17:41)
[2022-11-27] MEDS ORDERED: methylPREDNISolone SOD SUCCI 125 MG/2 ML VIAL IV STA (17:41)
[2022-11-27] MEDS ORDERED: diphenhydrAMINE 50 MG/ML 1 ML VIAL IVP STA (17:41)
[2022-11-27] MEDS ORDERED: FAMOTIDINE 20 MG/2 ML VIAL IV STA (17:41)
== END 2022-11-27 19:25 | disposition home or self-care (01) ==
LOC: EC 16:29
DX: T63.441A Toxic effect of venom of bees, accidental (unintentional), initial encounter (principal); R22.0 Localized swelling, mass and lump, head; K21.9 Gastro-esophageal reflux disease without esophagitis; F17.200 Nicotine dependence, unspecified, uncomplicated; Z86.59 Personal history of other mental and behavioral disorders; Z79.899 Other long term (current) drug therapy
CPT/HCPCS: 99282; 96374; 96375 ×2; J1200; J2930; J3490

== ENCOUNTER 2023-10-19 02:38 | Emergency (ER) | payer BC ==
[2023-10-19 02:58] VITALS: TEMP 98.1
[2023-10-19 04:21] LABS: Basophils # (A) 0.1 k/uL (0-0.2); Basophils % (A) 1 %; Eosinophils # (A) 0.5 k/uL (0-0.7); Eosinophils % (A) 8 %; HCT 45.7 % (39.0-53.0); HGB 15.3 gm/dL (13.0-17.5); Lymphocytes # (A) 2.3 k/uL (1.0-4.8); Lymphocytes % (A) 35 %; MCH 29.9 pg (25.0-35.0); MCHC 33.5 g/dL (31.0-37.0); MCV 89.2 fL (80.0-100.0); Mean Platelet Volume 7.5; Monocytes # (A) 0.4 k/uL (0-1.0); Monocytes % (A) 6 %; Neutrophils # (A) 3.2 k/uL (1.3-7.7); Neutrophils % (A) 49 %; Platelet Count 254 k/uL (150-450); RBC 5.13 m/uL (4.30-5.90); RDW 12.6 % (11.5-15.5); WBC 6.6 k/uL (3.8-10.6)
--- NOTE | 2023-10-19 04:43 | XR ---
EXAM: XR Chest, 2 Views CLINICAL HISTORY: difficulty breathing TECHNIQUE: Frontal and lateral views of the chest. COMPARISON: No relevant prior studies available. FINDINGS: Lungs: No consolidation. Hypoventilation with bibasilar atelectasis. No CHF. Pleural space: No pleural effusion. No pneumothorax. Heart: No cardiomegaly. Mediastinum: Unremarkable. Normal mediastinal contour. Bones/joints: Unremarkable. No acute fracture. IMPRESSION: Hypoventilation with bibasilar atelectasis.
[2023-10-19 05:01] LABS: Appearance,Urine Clear (Clear); Bilirubin,Urine Negative (Negative); Blood,Urine Trace (Negative); Color,Urine Light Yellow; Glucose,Urine (UA) Negative (Negative); Hyaline Casts,Urine 1 /lpf (0-2); Ketones,Urine Negative (Negative); Leukocyte Esterase,Urine Negative (Negative); Mucus,Urine Rare /hpf; Nitrite,Urine Negative (Negative); Protein,Urine Negative (Negative); RBC,Urine 2 /hpf (0-5); Specific Gravity,Urine 1.022 (1.001-1.035); Squamous Epithelial Cell,Urine <1 /hpf (0-4); Urobilinogen,Urine <2.0 mg/dL (<2.0); WBC,Urine <1 /hpf (0-5)
[2023-10-19 05:16] VITALS: BP 124/81; PULSE 56; RESP 17
[2023-10-19 05:30] LABS: INR 0.9 (<1.2); Partial Thromboplastin Time 26.5 sec (22.0-30.0); Prothrombin Time 10.1 sec (10.0-12.5)
[2023-10-19 06:17] LABS: ALT 37 U/L (4-49); AST 31 U/L (17-59); African American GFR (CKD) >90 (>60 ml/min/1.73 sqM); Albumin 4.2 g/dL (3.5-5.0); Alkaline Phosphatase 50 U/L (38-126); Anion Gap 6 mmol/L; Blood Urea Nitrogen 13 mg/dL (9-20); Calcium 8.8 mg/dL (8.4-10.2); Carbon Dioxide 21 mmol/L (22-30); Chloride 111 mmol/L (98-107); Glucose 96 mg/dL (74-99); Non-African American GFR(CKD) >90 (>60 ml/min/1.73 sqM); Sodium 138 mmol/L (137-145); Total Bilirubin 0.9 mg/dL (0.2-1.3); Total Protein 6.5 g/dL (6.3-8.2)
--- NOTE | 2023-10-19 06:35 | ED ---
General Adult HPI - General Chief complaint: Shortness of Breath Stated complaint: Swelling in foot and chest Time Seen by Provider: 10/19/23 05:57 Source: patient Mode of arrival: ambulatory - History of Present Illness Initial comments: Ha previously healthy 33-year-old male who presents the ER today with complaints of swelling of his right foot and for swelling around his right pectoral muscle. Patient denies pain in either he has noticed the swelling in his foot for couple of days seems to improve when he elevates his foot. Swelling in his chest he noticed while he is laying down this evening and became somewhat anxious decided come to the ER. Patient states there is some mild discomfort no significant chest pain he has no history of DVT PE or cardiac history. No family history of clotting disorders. - Related Data Home Medications Medication Instructions Recorded Confirmed Omeprazole 40 mg PO DAILY 03/25/18 05/14/18 Ibuprofen [Advil] 200 mg PO Q8HR PRN 05/10/18 05/10/18 Previous Rx's Medication Instructions Recorded Naproxen [Naprosyn] 500 mg PO Q12HR #60 tab 12/22/19 predniSONE 50 mg PO DAILY #5 tab 12/22/19 Benzonatate [Tessalon Perles] 100 mg PO TID PRN #20 capsule 10/26/21 Nirmatrelvir/Ritonavir [Paxlovid 1 each PO BID 5 Days #10 tab 10/26/21 2X150 mg-100 mg (Eua)] Ondansetron Odt [Zofran Odt] 4 mg PO Q8HR PRN #20 tab 10/26/21 EPINEPHrine (Auto Inject) [Epipen] 0.3 mg IM ONCE PRN #1 each 11/27/22 Famotidine [Pepcid] 40 mg PO DAILY 5 Days #10 tablet 11/27/22 diphenhydrAMINE [Benadryl] 25 mg PO QID PRN 5 Days #20 capsule 11/27/22 predniSONE 50 mg PO DAILY #5 tab 11/27/22 Allergies Allergy/AdvReac Type Severity Reaction Status Date / Time No Known Allergies Allergy Verified 11/27/22 17:36 Review of Systems ROS Statement: Those systems with pertinent positive or pertinent negative responses have been documented in the HPI. ROS Other: All systems not noted in ROS Statement are negative. Past Medical History Past Medical History: GERD/Reflux Additional Past Medical History / Comment(s): abd pain, DIARRHEA History of Any Multi-Drug Resistant Organisms: None Reported Past Surgical History: Cholecystectomy Additional Past Surgical History / Comment(s): EGD, WISDOM TEETH EXTRACTION Past Anesthesia/Blood Transfusion Reactions: No Reported Reaction Past Psychological History: Depression Smoking Status: Former smoker Past Alcohol Use History: None Reported Past Drug Use History: None Reported - Past Family History Mother Family Medical History: Cancer General Exam - General Exam Comments Initial Comments: Physical Exam GENERAL: Patient is well-developed and well-nourished. Patient is nontoxic and well- hydrated and is in no distress. HENT: Normocephalic, Atraumatic. EYES: PERRL, EOMI PULMONARY: Unlabored respirations. No audible rales rhonchi or wheezing was noted. CARDIOVASCULAR: There is a regular rate and rhythm without any murmurs gallops or rubs. ABDOMEN: Soft and nontender with normal bowel sounds. SKIN: Skin is clear with no lesions or rashes and otherwise unremarkable. : Deferred NEUROLOGIC: Patient is alert and oriented x3. Moving all extremities spontaneously MUSCULOSKELETAL: Normal extremities with adequate strength and full range of motion. 1+ edema of the bilateral lower extremities no calf tenderness PSYCHIATRIC: Normal psychiatric evaluation. Course Vital Signs 10/19/23 10/19/23 02:53 05:13 Temperature 98.1 F Pulse Rate 64 56 L Respiratory 18 17 Rate Blood Pressure 135/79 124/81 O2 Sat by Pulse 99 95 Oximetry EKG Findings - EKG Comments: EKG Findings:: EKG interpreted by me, EKG obtained at 350 EKG with a rate of 59 rhythm is sinus bradycardia normal axis, normal intervals IN 135 QRS 105 QTc 374 there are no acute ST elevations or depressions no evidence of ischemia or infarction. Medical Decision Making - Medical Decision Making Was pt. sent in by a medical professional or institution (, PA, POLYSTYRENE MOLDING MACHINE TENDER, urgent care, hospital, or group home...) When possible be specific @ -No Did you speak to anyone other than the patient for history (EMS, parent, family, police, friend...)? What history was obtained from this source @ -No Did you review nursing and triage notes (agree or disagree)? Why? @ -I reviewed and agree with nursing and triage notes Were old charts reviewed (outside hosp., previous admission, EMS record, old EKG, old radiological studies, urgent care reports/EKG's, group home records)? Report findings @ -No old charts were reviewed Differential Diagnosis (chest pain, altered mental status, abdominal pain women, abdominal pain men, vaginal bleeding, weakness, fever, dyspnea, syncope, headache, dizziness, GI bleed, back pain, seizure, CVA, palpatations, mental he alth)? @ -Not applicable EKG interpreted by me (3pts min.). @ -As above X-rays interpreted by me (1pt min.). @ -None done CT interpreted by me (1pt min.). @ -None done U/S interpreted by me (1pt. min.). @ -None done What testing was considered but not performed or refused? (CT, X-rays, U/S, la bs)? Why? @ -None What meds were considered but not given or refused? Why? @ -None Did you discuss the management of the patient with other professionals (professionals i.e. , PA, POLYSTYRENE MOLDING MACHINE TENDER, lab, RT, psych nurse, social worker clinical, director speech, teacher, ecological technical officer, field nurse case manager)? Give summary @ -No Was smoking cessation discussed for >3mins.? @ -No Was critical care preformed (if so, how long)? @ -No Were there social determinants of health that impacted care today? How? (Homelessness, low income, unemployed, alcoholism, drug addiction, transportation, low edu. Level, literacy, decrease access to med. care, [facility], rehab)? @ -No Was there de-escalation of care discussed even if they declined (Discuss DNR or withdrawal of care, Hospice)? DNR status @ -No What co-morbidities impacted this encounter? (DM, HTN, Smoking, COPD, CAD, Cancer, CVA, ARF, Chemo, Hep., AIDS, mental health diagnosis, sleep apnea, morbid obesity)? @ -None Was patient admitted / discharged? Hospital course, mention meds given and route, prescriptions, significant lab abnormalities, going to OR and other pertinent info. @ -Discharged Patient was seen and evaluated, workup was initiated in triage, labs EKG and chest x-ray were performed. There are no acute findings D-dimer is not elevated physical exam is not consistent with a DVT. Advised the patient that any swelling he may since in his right pectoral is not related to his lungs as this is outside of his rib cage. Recommended supportive care and outpatient follow- up. Patient was agreeable with this plan. Undiagnosed new problem with uncertain prognosis? @ -No Drug Therapy requiring intensive monitoring for toxicity (Heparin, Nitro, Insulin, Cardizem)? @ -No Were any procedures done? @ -No Diagnosis/symptom? @ -Foot swelling Acute, or Chronic, or Acute on Chronic? @ -Default Uncomplicated (without systemic symptoms) or Complicated (systemic symptoms)? @ -Default Side effects of treatment? @ -No Exacerbation, Progression, or Severe Exacerbation? @ -No Poses a threat to life or bodily function? How? (Chest pain, USA, VT, pneumonia, PE, COPD, DKA, ARF, appy, cholecystitis, CVA, Diverticulitis, Homicidal, Suicidal, threat to staff... and all critical care pts) @ -No - Lab Data Result diagrams: 10/19/23 04:01 10/19/23 05:01 Lab Results 10/19/23 10/19/23 10/19/23 Range/Units 04:01 04:01 04:37 WBC 6.6 (3.8-10.6) k/uL RBC 5.13 (4.30-5.90) m/uL Hgb 15.3 (13.0-17.5) gm/dL Hct 45.7 (39.0-53.0) % MCV 89.2 (80.0-100.0) fL MCH 29.9 (25.0-35.0) pg MCHC 33.5 (31.0-37.0) g/dL RDW 12.6 (11.5-15.5) % Plt Count 254 (150-450) k/uL MPV 7.5 Neutrophils % 49 % Lymphocytes % 35 % Monocytes % 6 % Eosinophils % 8 % Basophils % 1 % Neutrophils # 3.2 (1.3-7.7) k/uL Lymphocytes # 2.3 (1.0-4.8) k/uL Monocytes # 0.4 (0-1.0) k/uL Eosinophils # 0.5 (0-0.7) k/uL Basophils # 0.1 (0-0.2) k/uL PT (10.0-12.5) sec INR (<1.2) APTT (22.0-30.0) sec D-Dimer (<0.60) mg/L FEU Sodium (137-145) mmol/L Potassium (3.5-5.1) mmol/L Chloride (98-107) mmol/L Carbon Dioxide (22-30) mmol/L Anion Gap mmol/L BUN (9-20) mg/dL Creatinine (0.66-1.25) mg/dL Est GFR (CKD-EPI)AfAm (>60 ml/min/1.73 sqM) Est GFR (CKD-EPI)NonAf (>60 ml/min/1.73 sqM) Glucose (74-99) mg/dL Calcium (8.4-10.2) mg/dL Total Bilirubin (0.2-1.3) mg/dL AST (17-59) U/L ALT (4-49) U/L Alkaline Phosphatase (38-126) U/L Troponin I <0.012 (0.000-0.034) ng/mL Total Protein (6.3-8.2) g/dL Albumin (3.5-5.0) g/dL Urine Color Light Yellow Urine Appearance Clear (Clear) Urine pH 6.0 (5.0-8.0) Ur Specific [place] 1.022 (1.001-1.035) Urine Protein Negative (Negative) Urine Glucose (UA) Negative (Negative) Urine Ketones Negative (Negative) Urine Blood Trace H (Negative) Urine Nitrite Negative (Negative) Urine Bilirubin Negative (Negative) Urine Urobilinogen <2.0 (<2.0) mg/dL Ur Leukocyte Esterase Negative (Negative) Urine RBC 2 (0-5) /hpf Urine WBC <1 (0-5) /hpf Ur Squamous Epith Cells <1 (0-4) /hpf Hyaline Casts 1 (0-2) /lpf Urine Mucus Rare H (None) /hpf 10/19/23 10/19/23 10/19/23 Range/Units 05:01 05:01 05:01 WBC (3.8-10.6) k/uL RBC (4.30-5.90) m/uL Hgb (13.0-17.5) gm/dL Hct (39.0-53.0) % MCV (80.0-100.0) fL MCH (25.0-35.0) pg MCHC (31.0-37.0) g/dL RDW (11.5-15.5) % Plt Count (150-450) k/uL MPV Neutrophils % % Lymphocytes % % Monocytes % % Eosinophils % % Basophils % % Neutrophils # (1.3-7.7) k/uL Lymphocytes # (1.0-4.8) k/uL Monocytes # (0-1.0) k/uL Eosinophils # (0-0.7) k/uL Basophils # (0-0.2) k/uL PT 10.1 (10.0-12.5) sec INR 0.9 (<1.2) APTT 26.5 (22.0-30.0) sec D-Dimer 0.47 (<0.60) mg/L FEU Sodium 138 (137-145) mmol/L Potassium 4.0 (3.5-5.1) mmol/L Chloride 111 H (98-107) mmol/L Carbon Dioxide 21 L (22-30) mmol/L Anion Gap 6 mmol/L BUN 13 (9-20) mg/dL Creatinine 0.76 (0.66-1.25) mg/dL Est GFR (CKD-EPI)AfAm >90 (>60 ml/min/1.73 sqM) Est GFR (CKD-EPI)NonAf >90 (>60 ml/min/1.73 sqM) Glucose 96 (74-99) mg/dL Calcium 8.8 (8.4-10.2) mg/dL Total Bilirubin 0.9 (0.2-1.3) mg/dL AST 31 (17-59) U/L ALT 37 (4-49) U/L Alkaline Phosphatase 50 (38-126) U/L Troponin I (0.000-0.034) ng/mL Total Protein 6.5 (6.3-8.2) g/dL Albumin 4.2 (3.5-5.0) g/dL Urine Color Urine Appearance (Clear) Urine pH (5.0-8.0) Ur Specific [place] (1.001-1.035) Urine Protein (Negative) Urine Glucose (UA) (Negative) Urine Ketones (Negative) Urine Blood (Negative) Urine Nitrite (Negative) Urine Bilirubin (Negative) Urine Urobilinogen (<2.0) mg/dL Ur Leukocyte Esterase (Negative) Urine RBC (0-5) /hpf Urine WBC (0-5) /hpf Ur Squamous Epith Cells (0-4) /hpf Hyaline Casts (0-2) /lpf Urine Mucus (None) /hpf Disposition Clinical Impression: Pleuritic chest pain Disposition: HOME SELF-CARE Condition: Stable Is patient prescribed a controlled substance at d/c from ED?: No Referrals: Lazarus Bhatt DO [Primary Care Provider] - 1-2 days
== END 2023-10-19 07:30 | disposition home or self-care (01) ==
LOC: EC 02:38
CPT/HCPCS: 36415; 71046; 80053; 81001; 84484; 85025; 85379; 85610; 85730; 93005; 99285

== ENCOUNTER 2024-06-17 08:34 | Emergency (ER) | payer BC ==
--- NOTE | 2024-06-17 08:46 | ED ---
General Adult HPI - General Chief complaint: Back Pain/Injury Stated complaint: groin/low back pain, left side pain Time Seen by Provider: 06/17/24 08:39 Source: patient, RN notes reviewed Mode of arrival: ambulatory Limitations: no limitations - History of Present Illness Initial comments: 34 year old male with no reported medical conditions presenting to the emergency room with complaint of left flank pain and radiation into his groin that started approximately 40 minutes prior to arrival. Patient states that the pain began in his back and radiates into the front of his abdomen described as a sharp sensation. Denies hematuria, dysuria, increased urinary frequency or urgency, fevers or chills. Endorses nausea and vomiting. Denies history of kidney stones or kidney infections. Previous surgical history of cholecystectomy. - Related Data Home Medications Medication Instructions Recorded Confirmed Ibuprofen [Advil] 400 mg PO Q6H PRN 05/10/18 06/17/24 Acetaminophen Tab [Tylenol Tab] 1,000 mg PO Q6H PRN 06/17/24 06/17/24 Previous Rx's Medication Instructions Recorded HYDROcodone/APAP 7.5-325MG [Harlan 1 tab PO Q6HR PRN 3 Days #12 tab 06/17/24 7.5-325] Ondansetron Odt [Zofran Odt] 4 mg PO Q8HR PRN #10 tab 06/17/24 Tamsulosin [Flomax] 0.4 mg PO DAILY #7 cap 06/17/24 Allergies Allergy/AdvReac Type Severity Reaction Status Date / Time No Known Allergies Allergy Verified 06/17/24 09:34 Review of Systems ROS Statement: Those systems with pertinent positive or pertinent negative responses have been documented in the HPI. ROS Other: All systems not noted in ROS Statement are negative. Past Medical History Past Medical History: GERD/Reflux Additional Past Medical History / Comment(s): abd pain, DIARRHEA History of Any Multi-Drug Resistant Organisms: None Reported Past Surgical History: Cholecystectomy Additional Past Surgical History / Comment(s): EGD, WISDOM TEETH EXTRACTION Past Anesthesia/Blood Transfusion Reactions: No Reported Reaction Past Psychological History: Depression Smoking Status: Former smoker Past Alcohol Use History: None Reported Past Drug Use History: None Reported - Past Family History Mother Family Medical History: Cancer General Exam Limitations: no limitations General appearance: alert, in no apparent distress Neck exam: Present: normal inspection. Absent: tenderness, meningismus, lymphadenopathy Respiratory exam: Present: normal lung sounds bilaterally. Absent: respiratory distress, wheezes, rales, rhonchi, stridor Cardiovascular Exam: Present: regular rate, normal rhythm, normal heart sounds. Absent: systolic murmur, diastolic murmur, rubs, gallop, clicks GI/Abdominal exam: Present: soft, normal bowel sounds. Absent: distended, tenderness, guarding, rebound, rigid Extremities exam: Present: normal inspection, full ROM, normal capillary refill. Absent: tenderness, pedal edema, joint swelling, calf tenderness Back exam: Present: normal inspection, tenderness, CVA tenderness (L). Absent: CVA tenderness (R) Course Vital Signs 06/17/24 06/17/24 06/17/24 08:35 09:44 10:15 Temperature 97.3 F L 99.0 F Pulse Rate 76 60 66 Respiratory 18 20 18 Rate Blood Pressure 151/73 135/66 138/90 O2 Sat by Pulse 98 98 97 Oximetry 06/17/24 06/17/24 06/17/24 10:34 11:20 12:07 Temperature 98.5 F Pulse Rate 61 64 62 Respiratory 20 16 18 Rate Blood Pressure 135/81 136/87 121/84 O2 Sat by Pulse 97 96 98 Oximetry Medical Decision Making - Medical Decision Making Was pt. sent in by a medical professional or institution (RAMANA Cates, CONTACT WORKER LITHOGRAPHY, urgent care, hospital, or intermediate...) When possible be specific @ -No Did you speak to anyone other than the patient for history (EMS, parent, family, police, friend...)? What history was obtained from this source @ -No Did you review nursing and triage notes (agree or disagree)? Why? @ -I reviewed and agree with nursing and triage notes Were old charts reviewed (outside hosp., previous admission, EMS record, old EKG, old radiological studies, urgent care reports/EKG's, intermediate records)? Report findings @ -No old charts were reviewed Differential Diagnosis (chest pain, altered mental status, abdominal pain women, abdominal pain men, vaginal bleeding, weakness, fever, dyspnea, syncope, headache, dizziness, GI bleed, back pain, seizure, CVA, palpatations, mental health, musculoskeletal)? @ -Differential Abdominal Pain Men: Appendicitis, cholecystitis, diverticulosis, ischemic bowel, pancreatitis, hepatitis, UTI, gastroenteritis, AAA, incarcerated hernia, bowel obstruction, constipation, inflammatory bowel, hepatitis, peptic ulcer disease, splenic infarction, perforated viscus, testicular torsion, this is not meant to be an all-inclusive list EKG interpreted by me (3pts min.). @ -None X-rays interpreted by me (1pt min.). @ -None done CT interpreted by me (1pt min.). @ -CT abdomen pelvis without contrast reveals a 4 mm stone at the left UVJ with mild obstructive uropathy U/S interpreted by me (1pt. min.). @ -None done What testing was considered but not performed or refused? (CT, X-rays, U/S, labs)? Why? @ -None What meds were considered but not given or refused? Why? @ -None Did you discuss the management of the patient with other professionals (professionals i.e. , PA, CONTACT WORKER LITHOGRAPHY, lab, RT, psych nurse, social media community manager, vocational rehabilitation supervisor, teacher, gifts officer, bottle caser)? Give summary @ -No Was smoking cessation discussed for >3mins.? @ -No Was critical care preformed (if so, how long)? @ -No Were there social determinants of health that impacted care today? How? (Homelessness, low income, unemployed, alcoholism, drug addiction, potter sportation, low edu. Level, literacy, decrease access to med. care, detention, rehab)? @ -No Was there de-escalation of care discussed even if they declined (Discuss DNR or withdrawal of care, Hospice)? DNR status @ -No What co-morbidities impacted this encounter? (DM, HTN, Smoking, COPD, CAD, Cancer, CVA, ARF, Chemo, Hep., AIDS, mental health diagnosis, sleep apnea, morbid obesity)? @ -None Was patient admitted / discharged? Hospital course, mention meds given and route, prescriptions, significant lab abnormalities, going to OR and other pertinent info. @ -Discharge. 34-year-old male presents emergency department with left leg pain with ration to the abdomen. On evaluation patient noted to be an discomfort due to pain and is noted to have left CVA tenderness. He is provided with a ntiemetics, fluids, Dilaudid for pain control. Laboratory test including CBC and CMP unremarkable. Urinalysis markable for large blood. CT of the abdomen reveals a 4 mm stone at the left UVJ. Patient's pain has been well-controlled the emergency department. Outpatient prescription sent for Zofran, Harlan, and Flomax. Provided urology referral. Case discussed with Dr. Jesus Undiagnosed new problem with uncertain prognosis? @ -No Drug Therapy requiring intensive monitoring for toxicity (Heparin, Nitro, Insulin, Cardizem)? @ -No Were any procedures done? @ -No Diagnosis/symptom? @ -left UVJ Acute, or Chronic, or Acute on Chronic? @ -acute Uncomplicated (without systemic symptoms) or Complicated (systemic symptoms)? @ -uncomplicated Side effects of treatment? @ -No Exacerbation, Progression, or Severe Exacerbation? @ -No Poses a threat to life or bodily function? How? (Chest pain, USA, AR, pneumonia, PE, COPD, DKA, ARF, appy, cholecystitis, CVA, Diverticulitis, Homicidal, Suicidal, threat to staff... and all critical care pts) @ -No - Lab Data Result diagrams: 06/17/24 09:08 06/17/24 09:08 Lab Results 06/17/24 06/17/24 06/17/24 Range/Units 09:08 09:08 12:05 WBC 7.7 (3.8-10.6) k/uL RBC 5.36 (4.30-5.90) m/uL Hgb 15.4 (13.0-17.5) gm/dL Hct 48.1 (39.0-53.0) % MCV 89.8 (80.0-100.0) fL MCH 28.8 (25.0-35.0) pg MCHC 32.1 (31.0-37.0) g/dL RDW 12.4 (11.5-15.5) % Plt Count 265 (150-450) k/uL MPV 7.3 Neutrophils % 56 % Lymphocytes % 31 % Monocytes % 5 % Eosinophils % 6 % Basophils % 1 % Neutrophils # 4.3 (1.3-7.7) k/uL Lymphocytes # 2.4 (1.0-4.8) k/uL Monocytes # 0.4 (0-1.0) k/uL Eosinophils # 0.5 (0-0.7) k/uL Basophils # 0.1 (0-0.2) k/uL Sodium 141 (137-145) mmol/L Potassium 3.9 (3.5-5.1) mmol/L Chloride 106 (98-107) mmol/L Carbon Dioxide 25 (22-30) mmol/L Anion Gap 10 mmol/L BUN 13 (9-20) mg/dL Creatinine 1.00 (0.66-1.25) mg/dL Est GFR (CKD-EPI)AfAm >90 (>60 ml/min/1.73 sqM) Est GFR (CKD-EPI)NonAf >90 (>60 ml/min/1.73 sqM) Glucose 124 H (74-99) mg/dL Calcium 9.4 (8.4-10.2) mg/dL Total Bilirubin 1.1 (0.2-1.3) mg/dL AST 28 (17-59) U/L ALT 36 (4-49) U/L Alkaline Phosphatase 60 (38-126) U/L Total Protein 7.0 (6.3-8.2) g/dL Albumin 4.5 (3.5-5.0) g/dL Urine Color Yellow Urine Appearance Clear (Clear) Urine pH 5.5 (5.0-8.0) Ur Specific [place] 1.020 (1.001-1.035) Urine Protein Trace H (Negative) Urine Glucose (UA) Negative (Negative) Urine Ketones Negative (Negative) Urine Blood Large H (Negative) Urine Nitrite Negative (Negative) Urine Bilirubin Negative (Negative) Urine Urobilinogen <2.0 (<2.0) mg/dL Ur Leukocyte Esterase Negative (Negative) Urine RBC 131 H (0-5) /hpf Urine WBC 2 (0-5) /hpf Ur Squamous Epith Cells <1 (0-4) /hpf Urine Mucus Occasional H (None) /hpf Disposition Clinical Impression: Calculus of ureterovesical junction (UVJ) Disposition: HOME SELF-CARE Condition: Good Instructions (If sedation given, give patient instructions): Kidney Stones (ED) Additional Instructions: Please return to the Emergency Department if symptoms worsen or any other concerns. Prescriptions: Tamsulosin [Flomax] 0.4 mg PO DAILY #7 cap HYDROcodone/APAP 7.5-325MG [Harlan 7.5-325] 1 tab PO Q6HR PRN 3 Days #12 tab PRN Reason: Severe Pain (Scale 7 To 10) Ondansetron Odt [Zofran Odt] 4 mg PO Q8HR PRN #10 tab PRN Reason: Nausea Is patient prescribed a controlled substance at d/c from ED?: Yes When asked, does pt state using other controlled substances?: No If prescribed controlled substance>3 days was MAPS reviewed?: Prescribed <3 Days If Rx opioid, was Start Talking consent form obtained?: Yes Referrals: None,Stated [Primary Care Provider] - 1-2 days Hemal Grant MD [STAFF PHYSICIAN] - 1-2 days Time of Disposition: 12:40
[2024-06-17 09:16] LABS: Basophils # (A) 0.1 k/uL (0-0.2); Basophils % (A) 1 %; Eosinophils # (A) 0.5 k/uL (0-0.7); Eosinophils % (A) 6 %; HCT 48.1 % (39.0-53.0); HGB 15.4 gm/dL (13.0-17.5); Lymphocytes # (A) 2.4 k/uL (1.0-4.8); Lymphocytes % (A) 31 %; MCH 28.8 pg (25.0-35.0); MCHC 32.1 g/dL (31.0-37.0); MCV 89.8 fL (80.0-100.0); Mean Platelet Volume 7.3; Monocytes # (A) 0.4 k/uL (0-1.0); Monocytes % (A) 5 %; Neutrophils # (A) 4.3 k/uL (1.3-7.7); Neutrophils % (A) 56 %; Platelet Count 265 k/uL (150-450); RBC 5.36 m/uL (4.30-5.90); RDW 12.4 % (11.5-15.5); WBC 7.7 k/uL (3.8-10.6)
[2024-06-17] MEDS: ONDANSETRON 4 MG/2 ML VIAL IVP STA (09:21)
[2024-06-17] MEDS: HYDROmorphone 1 MG/ML 1 ML SYRINGE IVP STA ×2 (09:22→10:25)
[2024-06-17] MEDS: SODIUM CHLORIDE 0.9% 1,000 ML IV STA (09:23)
[2024-06-17 09:30] LABS: ALT 36 U/L (4-49); AST 28 U/L (17-59); African American GFR (CKD) >90 (>60 ml/min/1.73 sqM); Albumin 4.5 g/dL (3.5-5.0); Alkaline Phosphatase 60 U/L (38-126); Anion Gap 10 mmol/L; Blood Urea Nitrogen 13 mg/dL (9-20); Calcium 9.4 mg/dL (8.4-10.2); Carbon Dioxide 25 mmol/L (22-30); Chloride 106 mmol/L (98-107); Glucose 124 mg/dL (74-99); Non-African American GFR(CKD) >90 (>60 ml/min/1.73 sqM); Potassium 3.9 mmol/L (3.5-5.1); Sodium 141 mmol/L (137-145); Total Bilirubin 1.1 mg/dL (0.2-1.3)
--- NOTE | 2024-06-17 10:08 | CT ---
EXAMINATION TYPE: CT abdomen pelvis wo con DATE OF EXAM: 06/17/2024 9:41 AM COMPARISON: None. CLINICAL INDICATION: Male, 34 years old with history of L flank pain w/ radiation into groin; L flank pain w/ radiation into groin TECHNIQUE: CT of the abdomen and pelvis without contrast. Coronal and sagittal reconstructions perfor [employer]. CT DLP: 1141.4 mGycm, Automated exposure control for dose reduction was used. FINDINGS: Heart normal size without pericardial effusion. Lung bases clear without pleural effusion. Noncontrast appearance of the liver, adrenal glands, spleen, and pancreas show no gross abnormality. 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 There is slight asymmetric fullness of the left renal collectin g system and left ureter with a 4 mm stone at the left UVJ. No dilated small bowel, free fluid, or free air. No mesenteric or retroperitoneal lymphadenopathy. Normal appendix. Mild stool burden. Scattered left-sided colonic diverticulosis. No pericolonic infla mmatory change. Bladder is distended. No abnormal fluid collection in the pelvis or pelvic lymphadenopathy. Bones: Mild degenerative disc disease lower lumbar spine. No osseous destructive process. IMPRESSION: 1. 4 mm stone at the left UVJ with very mild obstructive uropathy. 2. Scattered left-sided colonic diverticulosis without acute diverticulitis. [facility], , 06/17/2024 10:06 AM
[2024-06-17] MEDS: KETOROLAC 15 MG/ML 1 ML VIAL IVP STA (10:23)
[2024-06-17 12:07] VITALS: BP 121/84; PULSE 62; RESP 18; TEMP 98.5
[2024-06-17 12:29] LABS: Appearance,Urine Clear (Clear); Bilirubin,Urine Negative (Negative); Blood,Urine Large (Negative); Color,Urine Yellow; Glucose,Urine (UA) Negative (Negative); Ketones,Urine Negative (Negative); Leukocyte Esterase,Urine Negative (Negative); Mucus,Urine Occasional /hpf; Nitrite,Urine Negative (Negative); PH, Urine 5.5 (5.0-8.0); Protein,Urine Trace (Negative); RBC,Urine 131 /hpf (0-5); Squamous Epithelial Cell,Urine <1 /hpf (0-4); Urobilinogen,Urine <2.0 mg/dL (<2.0); WBC,Urine 2 /hpf (0-5)
== END 2024-06-17 12:49 | disposition home or self-care (01) ==
LOC: EC 08:34
DX: N20.1 Calculus of ureter (principal); Z87.891 Personal history of nicotine dependence
CPT/HCPCS: 51798; 36415; 80053; 85025; 81001; 74176; 99284; 96374; 96375 ×2; 96376; 96361; J2405; J1171; J1885